=== PATIENT | female | born 1960 | race Caucasian/White ===

== ENCOUNTER 2018-03-08 16:34 | Emergency (ER) | payer BC ==
[2018-03-08 17:07] VITALS: BP 147/86
--- NOTE | 2018-03-08 17:12 | UC ---
Skin Complaint HPI - HPI Summary HPI Summary: 57 yo female presents with tick bite to posterior right knee. She tells me that she was hiking 2-3 days ago and yesterday noticed a tick behind her right knee. Her removed it. She is here to have the area checked and for prophylactic treatment. Denies fever, chills, joint pain/swelling. - History of Current Complaint Hx Obtained From: Patient Onset/Duration: Sudden Onset Current Severity: None Pain Intensity: 0 <Drew Hernandez - Last Filed: 03/08/18 17:30> <Gus Forman - Last Filed: 03/08/18 20:30> - History of Current Complaint Chief Complaint: [facility] Time Seen by Provider: 03/08/18 17:12 Stated Complaint: TICK BITE - Allergy/Home Medications Allergies/Adverse Reactions: Allergies Allergy/AdvReac Type Severity Reaction Status Date / Time No Known Allergies Allergy Verified 03/08/18 16:58 Review of Systems Constitutional: Negative Skin: Other - Tick bite Respiratory: Negative Cardiovascular: Negative Gastrointestinal: Negative Neurovascular: Negative Musculoskeletal: Negative Neurological: Negative Psychological: Negative All Other Systems Reviewed And Are Negative: Yes <Drew Hernandez - Last Filed: 03/08/18 17:30> PMH/Surg Hx/FS Hx/Imm Hx - Additional Past Medical History Additional PMH: None Previously Healthy: Yes - Surgical History Surgical History: Yes Surgery Procedure, Year, and Place: LEFT WRIST FX REPAIR. EXCISION RIGHT CYST - Family History Known Family History: Positive: Cardiac Disease - Social History Occupation: Employed Full-time Lives: With Family Alcohol Use: Occasionally Substance Use Type: None Smoking Status (MU): Never Smoked Tobacco <Drew Hernandez - Last Filed: 03/08/18 17:30> Physical Exam - Summary Physical Exam Summary: GENERAL: NAD. WDWN. No pain distress. SKIN: Right posterior knee: 5mm diameter of mild erythema with central 2mm dark red/purple area. NTTP. No warmth. No streaking, bleeding, or drainage. NECK: Supple. Nontender. No lymphadenopathy. CHEST: No accessory muscle use. Breathing comfortably and in no distress. CV: RRR. Without m/r/g. NEURO: Alert. CN II-XII grossly intact. PSYCH: Age appropriate behavior. Triage Information Reviewed: Yes Vital Signs: Initial Vital Signs Temp 97.7 F 03/08/18 16:59 Pulse 64 03/08/18 16:59 Resp 16 03/08/18 16:59 BP 147/86 03/08/18 16:59 Pulse Ox 100 03/08/18 16:59 <Drew Hernandez - Last Filed: 03/08/18 17:30> Vital Signs: Initial Vital Signs Temp 97.7 F 03/08/18 16:59 Pulse 64 03/08/18 16:59 Resp 16 03/08/18 16:59 BP 147/86 03/08/18 16:59 Pulse Ox 100 03/08/18 16:59 <Gus Forman - Last Filed: 03/08/18 20:30> Course/Dx - Course Course Of Treatment: Tick bite right posterior knee. Doxycycline 200mg given in clinic tonight. Monitor for signs of lyme and f/u prn. - Diagnoses Provider Diagnoses: Tick bite right posterior knee <Drew Hernandez - Last Filed: 03/08/18 17:30> Discharge - Sign-Out/Discharge Documenting (check all that apply): Discharge/Admit/Transfer - Billing Disposition and Condition Condition: STABLE Disposition: Home <Drew Hernandez - Last Filed: 03/08/18 17:30> - Billing Disposition and Condition Condition: STABLE Disposition: Home <Gus Forman - Last Filed: 03/08/18 20:30> - Discharge Plan Condition: Stable Disposition: HOME Patient Education Materials: Lyme Disease (ED), Tick Bite (ED) Referrals: Jorge Maldonado MD [Primary Care Provider] - Additional Instructions: If you develop a fever, shortness of breath, chest pain, new or worsening symptoms - please call your PCP or go to the ED. Your blood pressure was high at todays visit. Please see your primary provider within 4 weeks for recheck and re-evaluation. Per institutional requirements, I have reviewed the chart, however, I was not consulted specifically or made aware of this patient by the above midlevel provider. I did not personally evaluate, interact with , or disposition this patient.
[2018-03-08] MEDS ORDERED: DOXYcycline CAP(*) 100 MG PO ONE (17:22)
== END 2018-03-08 17:31 | disposition home or self-care (01) ==
LOC: UCCORT 16:34
DX: S80.261A Insect bite (nonvenomous), right knee, initial encounter (principal); W57.XXXA Bitten or stung by nonvenomous insect and other nonvenomous arthropods, initial encounter; Y93.9 Activity, unspecified; Y99.9 Unspecified external cause status
CPT/HCPCS: 99212; A9270-GY; G0463

== ENCOUNTER 2018-10-01 11:11 | Emergency (ER) | payer BC ==
[2018-10-01 11:55] VITALS: BP 150/85
--- NOTE | 2018-10-01 13:15 | UC ---
Throat Pain/Nasal Joseph HPI - HPI Summary HPI Summary: Pt presents with c/o nasal congestion, cough sinus pressure x 4 days. Pt states she has a sinus infection. - History of Current Complaint Chief Complaint: UCGeneralIllness Stated Complaint: CONGESTION Time Seen by Provider: 10/01/18 13:08 Hx Obtained From: Patient ?: No Onset/Duration: Gradual Onset, Lasting Days, Still Present, Worse Since - onset Severity: Moderate Pain Intensity: 0 Cough: Nonproductive Associated Signs & Symptoms: Positive: Sinus Discomfort - Epiglottits Risk Factors Epiglottis Risk Factors: Negative - Allergies/Home Medications Allergies/Adverse Reactions: Allergies Allergy/AdvReac Type Severity Reaction Status Date / Time No Known Allergies Allergy Verified 03/08/18 16:58 PMH/Surg Hx/FS Hx/Imm Hx Previously Healthy: Yes - Surgical History Surgical History: Yes Surgery Procedure, Year, and Place: LEFT WRIST FX REPAIR. EXCISION RIGHT CYST - Family History Known Family History: Positive: Cardiac Disease - Social History Occupation: Employed Full-time Lives: With Family Alcohol Use: Occasionally Substance Use Type: None Smoking Status (MU): Never Smoked Tobacco Have You Smoked in the Last Year: No Review of Systems All Other Systems Reviewed And Are Negative: Yes Constitutional: Positive: Chills, Fatigue Skin: Positive: Negative Eyes: Positive: Negative ENT: Positive: Sinus Congestion, Sinus Pain/Tenderness Respiratory: Positive: Cough Cardiovascular: Positive: Negative Gastrointestinal: Positive: Negative Genitourinary: Positive: Negative Motor: Positive: Negative Neurovascular: Positive: Negative Musculoskeletal: Positive: Negative Neurological: Positive: Negative Psychological: Positive: Negative Is Patient Immunocompromised?: No Physical Exam Triage Information Reviewed: Yes Appearance: Ill-Appearing Vital Signs: Initial Vital Signs Temp 98.6 F 10/01/18 11:50 Pulse 90 10/01/18 11:50 Resp 16 10/01/18 11:50 BP 150/85 10/01/18 11:50 Pulse Ox 100 10/01/18 11:50 Vital Signs Reviewed: Yes Eye Exam: Normal ENT: Positive: Nasal congestion, Sinus tenderness Dental Exam: Normal Neck exam: Normal Respiratory Exam: Normal Cardiovascular Exam: Normal Musculoskeletal Exam: Normal Neurological Exam: Normal Psychological Exam: Normal Skin Exam: Normal Throat Pain/Nasal Course/Dx - Differential Dx/Diagnosis Differential Diagnosis/HQI/PQRI: Influenza, Sinusitis, URI Provider Diagnosis: Sinusitis Discharge - Sign-Out/Discharge Documenting (check all that apply): Patient Departure All imaging exams completed and their final reports reviewed: No Studies - Discharge Plan Condition: Stable Disposition: HOME Prescriptions: Amoxicillin PO (*) [Amoxicillin 875 MG (*)] 875 mg PO Q12H #20 tab Patient Education Materials: Sinusitis (ED) Referrals: Jorge Maldonado MD [Primary Care Provider] - If Needed - Billing Disposition and Condition Condition: STABLE Disposition: Home
== END 2018-10-01 13:32 | disposition home or self-care (01) ==
LOC: UCCORT 11:11
DX: J32.9 Chronic sinusitis, unspecified (principal)
CPT/HCPCS: 99212; G0463